=== PATIENT | female | born 2000 | race Native Hawaiian/Other Pacific Islander ===

== ENCOUNTER 2020-04-03 16:10 | Emergency (ER) | payer OTHER ==
[~2020-04-03] VITALS: Ht 157.5 cm; Wt 63.5 kg
[2020-04-03 16:15] VITALS: TEMP 98.7
[2020-04-03 17:26] LABS: PLATELET COUNT 241 K/uL (152-353)
[2020-04-03 17:34] LABS: POTASSIUM 4.4 mmol/L (3.6-5.2)
[2020-04-03 18:44] VITALS: BP 101/58
== END 2020-04-03 18:46 | disposition home or self-care (01) ==
LOC: ED 16:10
PROVIDERS: Family Medicine
DX: R42 Dizziness and giddiness (principal); R51.9 Headache, unspecified
CPT/HCPCS: 80053; 81000; 81025; 85027; 99283

== ENCOUNTER 2020-09-29 18:31 | Emergency (ER) | payer OTHER ==
[~2020-09-29] VITALS: Ht 157.5 cm; Wt 63.5 kg
[2020-09-29 19:11] LABS: PLATELET COUNT 208 K/uL (152-353)
[2020-09-29 19:19] LABS: POTASSIUM 4.2 mmol/L (3.6-5.2)
[2020-09-29 21:20] VITALS: BP 109/68; TEMP 97.9
== END 2020-09-29 21:20 | disposition home or self-care (01) ==
LOC: ED 18:31
PROVIDERS: Family Medicine
DX: O23.31 Infections of other parts of urinary tract in pregnancy, first trimester (principal); Z3A.01 Less than 8 weeks gestation of pregnancy
CPT/HCPCS: 36415; 80053; 81000; 81025; 84702; 85027; 87077; 87086; 87088; 87186; 96365; 96372; 96375; 99284; J0696; J1200

== ENCOUNTER 2021-07-08 05:03 | Emergency (ER) | payer OTHER ==
[~2021-07-08] VITALS: Ht 160 cm; Wt 68.9 kg
[2021-07-08 05:27] VITALS: TEMP 98.8
[2021-07-08 08:24] VITALS: BP 121/62
== END 2021-07-08 08:24 | disposition home or self-care (01) ==
LOC: ED 05:03
DX: N12 Tubulo-interstitial nephritis, not specified as acute or chronic (principal)
CPT/HCPCS: 81000; 81025; 87086; 87088; 96372; 99283; J1885

== ENCOUNTER 2022-04-12 07:02 | Emergency (ER) | payer OTHER ==
[~2022-04-12] VITALS: Ht 157.5 cm; Wt 65.8 kg
[2022-04-12 07:13] VITALS: BP 106/62; TEMP 96.8
== END 2022-04-12 08:00 | disposition home or self-care (01) ==
LOC: ED 07:02
DX: H65.191 Other acute nonsuppurative otitis media, right ear (principal)
CPT/HCPCS: 99282